=== PATIENT | male | born 1975 | race Caucasian/White ===

== ENCOUNTER 2022-04-18 08:20 | Emergency (ER) | payer OTHER ==
[~2022-04-18] VITALS: Ht 185.4 cm; Wt 70.0 kg
[2022-04-18] MEDS ORDERED: DIAZEPAM 5 MG TABLET PO ONE (10:45)
[2022-04-18] MEDS ORDERED: CLONIDINE 0.2MG TABLET PO ONE (10:45)
[2022-04-18 11:45] VITALS: BP 118/77
== END 2022-04-18 11:59 | disposition home or self-care (01) ==
LOC: ER 08:20
DX: F41.9 Anxiety disorder, unspecified (principal); Z76.0 Encounter for issue of repeat prescription
CPT/HCPCS: 99283